=== PATIENT | male | born 1945 | race Caucasian/White ===

== ENCOUNTER → 2021-01-28 | Outpatient (CLI) | payer MEDICARE, BC | LOC: KOH-I 01-27 09:00 | DX: D69.6 Thrombocytopenia, unspecified (principal); R16.1 Splenomegaly, not elsewhere classified | CPT/HCPCS: 76705 ==

== ENCOUNTER → 2021-02-12 | Outpatient (CLI) | payer MEDICARE, BC | LOC: KOH-I 15:51 | DX: Z87.891 Personal history of nicotine dependence (principal); J43.9 Emphysema, unspecified; I27.20 Pulmonary hypertension, unspecified | CPT/HCPCS: 71271 ==